=== PATIENT | male | born 1975 | race Two or more races ===

== ENCOUNTER 2018-11-05 13:15 | Outpatient (CLI) | payer OTHER ==
[2018-11-05] MEDS ORDERED: ALLO100T30 PO (13:41)
[2018-11-05] MEDS ORDERED: FLUT9.9S INH (13:41)
[2018-11-05] MEDS ORDERED: CETI10TA24 PO (13:41)
== END 2018-11-05 23:59 | disposition home or self-care (01) ==
LOC: STAR 13:15
PROVIDERS: ATTEND Otolaryngology
DX: Z02.9 Encounter for administrative examinations, unspecified (principal)

== ENCOUNTER 2018-11-09 05:40 | Day surgery (SDC) | payer OTHER ==
[~2018-11-09] VITALS: Ht 172.7 cm; Wt 96.0 kg
[~2018-11-09 05:40] MED LIST: ALLO100T30 PO; CETI10TA24 PO; FLUT9.9S INH
[2018-11-09] MEDS ORDERED: LACTATED RINGERS 1,000 ML IV SCH (06:43)
[2018-11-09] MEDS ORDERED: LIDOCAINE-MPF 1%, 2ML INFIL ONE (07:00)
[2018-11-09] MEDS ORDERED: FENTANYL PF 250 MCG/5ML ONE (07:05)
[2018-11-09] MEDS ORDERED: MIDAZOLAM 1 MG/ML, 2ML ONE (07:05)
[2018-11-09] MEDS ORDERED: DEXMEDETOMIDINE 200 MCG/2 ML ONE (07:11)
[2018-11-09] MEDS ORDERED: CLINDAMYCIN 150 MG/ML, 6ML ONE (07:12)
[2018-11-09] MEDS ORDERED: SUGAMMADEX 200 MG/2 ML IVPush ONE (07:12)
[2018-11-09] MEDS ORDERED: FLUORESCEIN SODIUM 500 MG/5 ML ONE (07:22)
[2018-11-09] MEDS ORDERED: OXYMETAZOLINE NASAL SPRAY 0.05%, 15ML ONE (07:22)
[2018-11-09] MEDS ORDERED: MUPIROCIN OINT 2%, 22GM ONE (07:22)
[2018-11-09] MEDS ORDERED: EPINEPHRINE TOPICAL SOLN 1 MG/ML, 30ML ONE (07:22)
[2018-11-09] MEDS ORDERED: LIDOCAINE 1%-EPI 1:100K, 20ML ONE (07:22)
[2018-11-09] MEDS ORDERED: ROCURONIUM 10 MG/ML,10ML ONE (07:23)
[2018-11-09] MEDS ORDERED: PROPOFOL 10 MG/ML, 20ML ONE (07:23)
[2018-11-09] MEDS ORDERED: DEXAMETHASONE 4 MG/ML, 1ML ONE (07:23)
[2018-11-09] MEDS ORDERED: PHENYLEPHRINE 10 MG/ML ONE (07:23)
[2018-11-09] MEDS ORDERED: LIDOCAINE 1%-EPI 1:100K, 20ML INFIL ONE (07:40)
[2018-11-09] MEDS ORDERED: BACITRACIN OINT 500U/GM, 15 GM ONE (07:44)
[2018-11-09] MEDS ORDERED: OXYcodone 5 MG/5 ML ORAL.SOL UDC ONE (08:43)
[2018-11-09] MEDS ORDERED: ONDANSETRON 2MG/ML, 2ML IV PRN (09:00)
[2018-11-09] MEDS ORDERED: OXYcodone 5 MG/5 ML ORAL.SOL UDC PO PRN (09:00)
[2018-11-09] MEDS ORDERED: FENTANYL PF 100 MCG/2ML IV PRN (09:00)
[2018-11-09] MEDS ORDERED: HYDROmorphone 2 MG/ML, 1ML IVPush PRN (09:00)
[2018-11-09] MEDS ORDERED: PROMETHAZINE 25 MG/ML, 1ML IV PRN (09:00)
== END 2018-11-09 11:05 | disposition home or self-care (01) ==
LOC: OUT 05:40
PROVIDERS: ATTEND Otolaryngology
DX: J34.2 Deviated nasal septum (principal); J34.3 Hypertrophy of nasal turbinates; J34.89 Other specified disorders of nose and nasal sinuses; Z88.1 Allergy status to other antibiotic agents; Z88.8 Allergy status to other drugs, medicaments and biological substances
CPT/HCPCS: 30140; 30520; 31240; 88304; 88311; J1100; J2250; J2370; J2704; J3010; J3490; J7120